=== PATIENT | male | born 1980 | race African-American/Black ===

== ENCOUNTER 2018-07-25 20:17 | Emergency (ER) | payer SELFPAY ==
[2018-07-25] MEDS: IPRATROPIUM 0.5MG/ALBUTEROL 2.5MG INH SOL UD 3ML (DUONEB)(J7620) NEB (20:37)
[2018-07-25] MEDS: methylPREDNISolone INJ 125 MG/2 ML VIAL (J2930) IV (20:45)
== END 2018-07-25 23:16 | disposition home or self-care (01) ==
LOC: M ED 20:17
DX: J45.901 Unspecified asthma with (acute) exacerbation (principal); F17.210 Nicotine dependence, cigarettes, uncomplicated
CPT/HCPCS: 94640

== ENCOUNTER 2018-07-26 03:50 | Emergency (ER) | payer SELFPAY ==
[2018-07-26] MEDS: IPRATROPIUM 0.5MG/ALBUTEROL 2.5MG INH SOL UD 3ML (DUONEB)(J7620) NEB (05:04)
[2018-07-26] MEDS: predniSONE 20 MG TAB PO (05:04)
[2018-07-26] MEDS: ALBUTEROL 90 MCG/ACT 8GM HFA INHALER INH (05:38)
== END 2018-07-26 05:43 | disposition home or self-care (01) ==
LOC: M ED 03:50
DX: J45.901 Unspecified asthma with (acute) exacerbation (principal); F17.210 Nicotine dependence, cigarettes, uncomplicated
CPT/HCPCS: 94664